=== PATIENT | male | born 1975 | race African-American/Black ===

== ENCOUNTER 2020-01-12 18:03 | Emergency (ER) | payer MEDICAID ==
[~2020-01-12] VITALS: Ht 175.3 cm; Wt 73.0 kg
[2020-01-12] MEDS ORDERED: PHEN50TA PO (18:17)
[2020-01-12] MEDS ORDERED: SODIUM CHLORIDE 0.9% 1,000 ML IV ONE (18:27)
[2020-01-12] MEDS ORDERED: ACETAMINOPHEN WITH CODEINE 300/30MG TABLET PO STA (18:27)
[2020-01-12] MEDS ORDERED: LEVETIRACETAM 500MG PREMIX 100 ML IV ONE (18:30)
[2020-01-12 19:11] LABS: BASOPHILS % 0.4 % (0.0-2.0); EOSINOPHILS % 2.3 % (0.0-5.0); HEMATOCRIT. 38.9 % (42.0-52.0); HEMOGLOBIN. 13.1 g/dL (14.0-18.0); LYMPHOCYTES % 18.9 % (20.0-50.0); MEAN CORPUSCULAR HEMOGLOBIN 29.2 pg (28.0-32.0); MEAN CORPUSCULAR VOLUME 86.6 fL (80.0-94.0); MEAN PLATELET VOLUME 7.7 fl (7.4-10.4); MONOCYTES % 10.5 % (2.0-8.0); NEUTROPHILS % 67.9 % (40.0-76.0); PLATELET 268 x1000/uL (130-400); RED BLOOD CELL COUNT 4.49 mill/uL (4.7-6.1); RED CELL DISTRIBUTION WIDTH 14.3 % (11.6-14.6)
[2020-01-12 19:17] LABS: CHLORIDE 98 mEq/L (98-107)
[2020-01-12 19:20] LABS: ETHANOL BLOOD < 10 mg/dL
[2020-01-12 20:14] LABS: CLARITY URINE CLEAR (CLEAR); COLOR URINE YELLOW (YELLOW); KETONES URINE NEGATIVE (NEGATIVE); LEUKOCYTE ESTERASE URINE TRACE (NEGATIVE); NITRITE URINE POSITIVE (NEGATIVE); OCCULT BLOOD URINE NEGATIVE (NEGATIVE); PH URINE 6.5 (4.5-8.0); PROTEIN URINE NEGATIVE (NEGATIVE); SPECIFIC GRAVITY URINE 1.015 (1.005-1.030)
[2020-01-12 20:26] LABS: *AMPHETAMINES SCREEN URINE NEGATIVE (NEGATIVE); *BARBITURATES SCREEN URINE NEGATIVE (NEGATIVE); *BENZODIAZEPINES SCREEN URINE NEGATIVE (NEGATIVE); *COCAINE SCREEN URINE NEGATIVE (NEGATIVE); METHADONE URINE SCREEN NEGATIVE (NEGATIVE); OPIATES URINE SCREEN NEGATIVE (NEGATIVE)
[2020-01-12 20:27] LABS: CANNABINOID URINE SCREEN NEGATIVE (NEGATIVE); PHENCYCLIDINE URINE SCREEN NEGATIVE (NEGATIVE)
[2020-01-12] MEDS ORDERED: KETOROLAC 15MG/ML VIAL IV ONE (20:45)
[2020-01-12 22:00] VITALS: BP 130/94
== END 2020-01-12 22:04 | disposition home or self-care (01) ==
LOC: ER 18:03 → EDBD 18:03 → ER 22:04
DX: N30.00 Acute cystitis without hematuria (principal); I10 Essential (primary) hypertension; R51 Headache; R56.9 Unspecified convulsions; Z79.899 Other long term (current) drug therapy
CPT/HCPCS: 36415; 80053; 80305; 80320; 81003; 85025; 96374; 96375; 99284; J1885; J1953; J7030; G0480

== ENCOUNTER 2020-04-01 16:14 | Inpatient (IN) | payer MEDICAID ==
[~2020-04-01] VITALS: Ht 185.4 cm; Wt 65.8 kg
[~2020-04-01 16:14] MED LIST: PHEN50TA PO
[2020-04-01] MEDS ORDERED: SODIUM CHLORIDE 0.9% 1,000 ML IV ONE (16:31)
[2020-04-01] MEDS ORDERED: LORAZEPAM 2MG/ML CPJ IV ONE (16:45)
[2020-04-01 17:06] LABS: BASOPHILS % 0.5 % (0.0-2.0); EOSINOPHILS % 0.8 % (0.0-5.0); HEMATOCRIT. 35.1 % (42.0-52.0); HEMOGLOBIN. 12.3 g/dL (14.0-18.0); LYMPHOCYTES % 15.2 % (20.0-50.0); MEAN CORPUSCULAR HEMOGLOBIN 30.4 pg (28.0-32.0); MEAN CORPUSCULAR VOLUME 86.7 fL (80.0-94.0); MEAN PLATELET VOLUME 7.5 fl (7.4-10.4); MONOCYTES % 11.4 % (2.0-8.0); NEUTROPHILS % 72.1 % (40.0-76.0); PLATELET 208 x1000/uL (130-400); RED BLOOD CELL COUNT 4.04 mill/uL (4.7-6.1); RED CELL DISTRIBUTION WIDTH 13.4 % (11.6-14.6)
[2020-04-01 17:10] LABS: CHLORIDE 96 mEq/L (98-107)
[2020-04-01 17:15] LABS: ETHANOL BLOOD < 10 mg/dL
[2020-04-01 17:20] LABS: CREATINE KINASE 478 IU/L (39-308)
[2020-04-01] MEDS ORDERED: KEPP500 PO (21:48)
[2020-04-01 21:50] VITALS: BP 138/82
[2020-04-01] MEDS ORDERED: GUAIFENESIN 200MG/10ML SUGAR FREE UDC PO PRN (22:15)
[2020-04-01] MEDS ORDERED: DOCUSATE SODIUM 100MG CAPSULE PO PRN (22:15)
[2020-04-01] MEDS ORDERED: CLONIDINE 0.1MG TABLET PO PRN (22:15)
[2020-04-01] MEDS ORDERED: MAGNESIUM/ALUMINUM HYDROXIDE/SIMETHICONE 30ML UDC PO PRN (22:15)
[2020-04-01] MEDS ORDERED: LORAZEPAM 2MG/ML CPJ IV PRN (22:15)
[2020-04-01] MEDS ORDERED: ONDANSETRON HCL 4MG/2ML INJ IV PRN (22:15)
[2020-04-01] MEDS ORDERED: HYDROCODONE/ACETAMINOPHEN 5/325MG TABLET PO PRN (22:15)
[2020-04-01] MEDS ORDERED: ACETAMINOPHEN 325MG TABLET PO PRN (22:15)
[2020-04-02] VITALS (7 sets, daily range): BP systolic 106–120; BP diastolic 68–89
[2020-04-02] MEDS: SODIUM CHLORIDE 0.45% 1,000 ML IV SCH ×3 (02:14→23:14)
[2020-04-02 06:08] LABS: BASOPHILS % 0.8 % (0.0-2.0); EOSINOPHILS % 0.3 % (0.0-5.0); HEMATOCRIT. 35.7 % (42.0-52.0); HEMOGLOBIN. 12.5 g/dL (14.0-18.0); LYMPHOCYTES % 15.4 % (20.0-50.0); MEAN CORPUSCULAR VOLUME 85.5 fL (80.0-94.0); MEAN PLATELET VOLUME 8.3 fl (7.4-10.4); MONOCYTES % 14.1 % (2.0-8.0); NEUTROPHILS % 69.4 % (40.0-76.0); PLATELET 220 x1000/uL (130-400); RED BLOOD CELL COUNT 4.17 mill/uL (4.7-6.1); RED CELL DISTRIBUTION WIDTH 13.2 % (11.6-14.6)
[2020-04-02 06:25] LABS: CHLORIDE 99 mEq/L (98-107)
[2020-04-02] MEDS: AMLODIPINE 10MG TABLET PO SCH (09:04)
[2020-04-02] MEDS: ENOXAPARIN 40MG/0.4ML SYR SUBCUT SCH (09:05)
[2020-04-02] MEDS ORDERED: POTASSIUM CHLORIDE 20MEQ TABLET SR PO NR (10:00)
[2020-04-02 19:00] LABS: *AMPHETAMINES SCREEN URINE NEGATIVE (NEGATIVE); *BARBITURATES SCREEN URINE NEGATIVE (NEGATIVE); *BENZODIAZEPINES SCREEN URINE NEGATIVE (NEGATIVE); *COCAINE SCREEN URINE NEGATIVE (NEGATIVE)
[2020-04-02] MEDS ORDERED: MAGNESIUM 1 G PREMIX 100 ML IV NR (19:00)
[2020-04-02 19:01] LABS: CANNABINOID URINE SCREEN NEGATIVE (NEGATIVE); METHADONE URINE SCREEN NEGATIVE (NEGATIVE); OPIATES URINE SCREEN NEGATIVE (NEGATIVE); PHENCYCLIDINE URINE SCREEN NEGATIVE (NEGATIVE)
[2020-04-03] VITALS: BP 116/84
[2020-04-03 04:00] VITALS: BP 121/72
[2020-04-03 08:00] VITALS: BP_SYST 120; BP_SYST 128; BP_DIAS 85; BP_DIAS 88
[2020-04-03] MEDS: ENOXAPARIN 40MG/0.4ML SYR SUBCUT SCH (09:50)
[2020-04-03] MEDS: AMLODIPINE 10MG TABLET PO SCH (09:52)
[2020-04-03 12:00] VITALS: BP 110/76
[2020-04-03 16:00] VITALS: BP 109/71
[2020-04-03] MEDS: SODIUM CHLORIDE 0.45% 1,000 ML IV SCH ×2 (19:10→20:08)
[2020-04-03 20:00] VITALS: BP 129/85
[2020-04-04] VITALS: BP 128/80
[2020-04-04 04:00] VITALS: BP 125/81
[2020-04-04 06:57] LABS: HEMATOCRIT. 34.5 % (42.0-52.0); HEMOGLOBIN. 11.7 g/dL (14.0-18.0); MEAN PLATELET VOLUME 8.1 fl (7.4-10.4); PLATELET 227 x1000/uL (130-400); RED BLOOD CELL COUNT 3.92 mill/uL (4.7-6.1); RED CELL DISTRIBUTION WIDTH 13.6 % (11.6-14.6)
[2020-04-04 07:08] LABS: CHLORIDE 102 mEq/L (98-107)
[2020-04-04 08:00] VITALS: BP 138/93
[2020-04-04] MEDS: AMLODIPINE 10MG TABLET PO SCH (10:31)
[2020-04-04] MEDS: ENOXAPARIN 40MG/0.4ML SYR SUBCUT SCH (10:32)
[2020-04-04] MEDS ORDERED: MAGNESIUM OXIDE 400MG TABLET PO SCH (12:30)
[2020-04-04 14:30] LABS: PLATELET ESTIMATE NORMAL
[2020-04-04 15:09] VITALS: BP 114/87
[2020-04-09] MEDS ORDERED: PHEN100C4 PO (01:00)
== END 2020-04-04 16:57 | disposition home or self-care (01) | DRG 812 ==
LOC: ER 16:14 → MICUSO 18:50 → EDBEDREQ 18:53 → EDBEDREQSVC 18:53 → EDBEDREQTM 18:53 → 6WST 21:04
PROVIDERS: ADMIT Hospitalist; ATTEND Hospitalist
DX: T42.0X1A Poisoning by hydantoin derivatives, accidental (unintentional), initial encounter (principal); G40.919 Epilepsy, unspecified, intractable, without status epilepticus; R50.9 Fever, unspecified; I10 Essential (primary) hypertension; Y92.89 Other specified places as the place of occurrence of the external cause; Z79.899 Other long term (current) drug therapy
CPT/HCPCS: 36415; 71045; 80053; 80185; 80305; 80320; 82550; 83735; 85025; 93970; 96374; 99291; J1650; J2060; J3475; J7030; G0480

== ENCOUNTER 2020-05-17 16:16 | Emergency (ER) | payer MEDICAID ==
[~2020-05-17] VITALS: Ht 177.8 cm; Wt 89.0 kg
[~2020-05-17 16:16] MED LIST changes: +KEPP500 PO; +PHEN100C4 PO; -PHEN50TA PO
[2020-05-17] MEDS ORDERED: LEVETIRACETAM 1000MG/100ML 100 ML IV ONE (17:45)
[2020-05-17 18:10] LABS: BASOPHILS % 0.8 % (0.0-2.0); EOSINOPHILS % 1.2 % (0.0-5.0); HEMATOCRIT. 38.7 % (42.0-52.0); HEMOGLOBIN. 13.2 g/dL (14.0-18.0); MEAN CORPUSCULAR HEMOGLOBIN 29.2 pg (28.0-32.0); MEAN CORPUSCULAR VOLUME 85.6 fL (80.0-94.0); MEAN PLATELET VOLUME 7.7 fl (7.4-10.4); MONOCYTES % 11.5 % (2.0-8.0); NEUTROPHILS % 71.5 % (40.0-76.0); PLATELET 243 x1000/uL (130-400); RED BLOOD CELL COUNT 4.52 mill/uL (4.7-6.1); RED CELL DISTRIBUTION WIDTH 14.7 % (11.6-14.6)
[2020-05-17 18:16] LABS: CHLORIDE 104 mEq/L (98-107)
[2020-05-17 18:20] LABS: ETHANOL BLOOD < 10 mg/dL
[2020-05-17 20:23] VITALS: BP 148/93
== END 2020-05-17 22:25 | disposition home or self-care (01) ==
LOC: ER 16:16
DX: G40.909 Epilepsy, unspecified, not intractable, without status epilepticus (principal); I10 Essential (primary) hypertension; Z79.899 Other long term (current) drug therapy
CPT/HCPCS: 36415; 80053; 80320; 85025; 93005; 96365; 96366; 99284; J1953; G0480

== ENCOUNTER 2020-05-30 16:00 | Inpatient (IN) | payer MEDICAID ==
[~2020-05-30] VITALS: Ht 175.3 cm; Wt 71.2 kg
[2020-05-30] MEDS ORDERED: LORAZEPAM 2MG/ML CPJ ONE (16:34)
[2020-05-30] MEDS ORDERED: LORAZEPAM 2MG/ML CPJ IV ONE (16:45)
[2020-05-30 17:26] LABS: CHLORIDE 99 mEq/L (98-107)
[2020-05-30 17:29] LABS: HEMATOCRIT. 39.9 % (42.0-52.0); HEMOGLOBIN. 13.5 g/dL (14.0-18.0); MEAN CORPUSCULAR HEMOGLOBIN 29.5 pg (28.0-32.0); MEAN CORPUSCULAR VOLUME 87.4 fL (80.0-94.0); MEAN PLATELET VOLUME 7.5 fl (7.4-10.4); PLATELET 263 x1000/uL (130-400); RED BLOOD CELL COUNT 4.56 mill/uL (4.7-6.1)
[2020-05-30 17:30] LABS: ETHANOL BLOOD < 10 mg/dL
[2020-05-30 17:47] LABS: PLATELET ESTIMATE NORMAL
[2020-05-30 21:42] VITALS: BP 140/90
[2020-05-30] MEDS ORDERED: DOCUSATE SODIUM 100MG CAPSULE PO PRN (21:45)
[2020-05-30] MEDS ORDERED: GUAIFENESIN 200MG/10ML SUGAR FREE UDC PO PRN (21:45)
[2020-05-30] MEDS ORDERED: ONDANSETRON HCL 4MG/2ML INJ IV PRN (21:45)
[2020-05-30] MEDS ORDERED: LORAZEPAM 2MG/ML CPJ IV PRN (21:45)
[2020-05-30] MEDS ORDERED: ACETAMINOPHEN 325MG TABLET PO PRN (21:45)
[2020-05-30] MEDS ORDERED: MAGNESIUM/ALUMINUM HYDROXIDE/SIMETHICONE 30ML UDC PO PRN (21:45)
[2020-05-30] MEDS: SODIUM CHLORIDE 0.45% 1,000 ML IV SCH (22:16)
[2020-05-30 22:59] VITALS: BP 140/80
[2020-05-30 23:36] LABS: CLARITY URINE CLEAR (CLEAR); COLOR URINE YELLOW (YELLOW); KETONES URINE NEGATIVE (NEGATIVE); LEUKOCYTE ESTERASE URINE NEGATIVE (NEGATIVE); NITRITE URINE POSITIVE (NEGATIVE); OCCULT BLOOD URINE NEGATIVE (NEGATIVE); PROTEIN URINE NEGATIVE (NEGATIVE); SPECIFIC GRAVITY URINE 1.013 (1.005-1.030); UROBILINOGEN URINE 0.2 E.U./dL (0.2-1.0)
[2020-05-31] VITALS: BP 131/94
[2020-05-31 00:17] LABS: *AMPHETAMINES SCREEN URINE NEGATIVE (NEGATIVE); *BARBITURATES SCREEN URINE NEGATIVE (NEGATIVE); *BENZODIAZEPINES SCREEN URINE NEGATIVE (NEGATIVE)
[2020-05-31 00:18] LABS: *COCAINE SCREEN URINE NEGATIVE (NEGATIVE); CANNABINOID URINE SCREEN NEGATIVE (NEGATIVE); METHADONE URINE SCREEN NEGATIVE (NEGATIVE); OPIATES URINE SCREEN NEGATIVE (NEGATIVE); PHENCYCLIDINE URINE SCREEN NEGATIVE (NEGATIVE)
[2020-05-31] MEDS: LEVETIRACETAM 500MG TABLET PO SCH ×3 (00:36→21:59)
[2020-05-31] MEDS: CLONIDINE 0.1MG TABLET PO PRN (00:43)
[2020-05-31 04:00] VITALS: BP 118/72
[2020-05-31 06:38] LABS: CHLORIDE 99 mEq/L (98-107)
[2020-05-31 06:54] LABS: BASOPHILS % 0.5 % (0.0-2.0); EOSINOPHILS % 0.4 % (0.0-5.0); HEMATOCRIT. 40.5 % (42.0-52.0); HEMOGLOBIN. 13.7 g/dL (14.0-18.0); LYMPHOCYTES % 14.5 % (20.0-50.0); MEAN CORPUSCULAR HEMOGLOBIN 28.9 pg (28.0-32.0); MEAN CORPUSCULAR VOLUME 85.1 fL (80.0-94.0); MEAN PLATELET VOLUME 8.2 fl (7.4-10.4); MONOCYTES % 8.6 % (2.0-8.0); PLATELET 255 x1000/uL (130-400); RED BLOOD CELL COUNT 4.76 mill/uL (4.7-6.1); RED CELL DISTRIBUTION WIDTH 14.3 % (11.6-14.6)
[2020-05-31 08:30] VITALS: BP 120/89
[2020-05-31] MEDS: SODIUM CHLORIDE 0.45% 1,000 ML IV SCH (10:10)
[2020-05-31 12:00] VITALS: BP 115/88
[2020-05-31 15:41] VITALS: BP 122/78
[2020-05-31 20:00] VITALS: BP 118/83
[2020-06-01] VITALS (8 sets, daily range): BP systolic 106–128; BP diastolic 67–96
[2020-06-01] MEDS: SODIUM CHLORIDE 0.45% 1,000 ML IV SCH ×3 (00:24→20:08)
[2020-06-01] MEDS: LEVETIRACETAM 500MG TABLET PO SCH ×2 (08:07→20:08)
[2020-06-01] MEDS: CLONIDINE 0.1MG TABLET PO PRN (08:07)
[2020-06-02 00:54] VITALS: BP 114/73
[2020-06-02 04:47] VITALS: BP 94/64
[2020-06-02 07:33] VITALS: BP 118/82
[2020-06-02] MEDS: LEVETIRACETAM 500MG TABLET PO SCH (08:33)
[2020-06-02 09:42] VITALS: BP 118/82
[2020-06-02 12:41] VITALS: BP 100/73
== END 2020-06-02 14:00 | disposition home or self-care (01) | DRG 53 ==
LOC: ER 16:00 → 7WST 20:22 → ENRESERV 20:32 → 6WST 05-31 23:47
PROVIDERS: ADMIT Hospitalist; ATTEND Hospitalist
DX: G40.409 Other generalized epilepsy and epileptic syndromes, not intractable, without status epilepticus (principal); I10 Essential (primary) hypertension; Z86.73 Personal history of transient ischemic attack (TIA), and cerebral infarction without residual deficits; Z03.818 Encounter for observation for suspected exposure to other biological agents ruled out
CPT/HCPCS: 36415; 71045; 80053; 80305; 80320; 81003; 82542; 82962; 85025; 87635; 93005; 99285; J2060; G0480